=== PATIENT | male | born 1930 | race Asian ===

== ENCOUNTER → 2017-02-01 | Outpatient (CLI) | payer MEDICARE, BC ==
[~2017-02-01] MED LIST: BENZ100C4 PO; CELE200C PO; DONE5TAB7 PO; FERR325T20 PO; LEVO750T26 PO; LISI-167 PO; None per Pt.; PANT40TA5 PO; RIVA20TA PO
== END | disposition home or self-care (01) ==
LOC: CFH 14:02
PROVIDERS: ATTEND Internal Medicine Critical Care Medicine
DX: R91.1 Solitary pulmonary nodule (principal)
CPT/HCPCS: 71250

== ENCOUNTER 2018-03-19 10:00 | Emergency (ER) | payer MEDICARE, BC ==
[~2018-03-19] VITALS: Ht 172.7 cm; Wt 58.0 kg
[~2018-03-19 10:00] MED LIST changes: +BENZ-17 PO; -BENZ100C4 PO; +FERR325T18 PO; -FERR325T20 PO
[2018-03-19 11:10] LABS: BASOPHILS % (AUTO) 1 % (0-1); EOSINOPHILS # (AUTO) 0.01 x10^3/uL (0-0.4); EOSINOPHILS % (AUTO) 0 % (1-7); LYMPHOCYTES # (AUTO) 1.28 x10^3/uL (1-3.4); LYMPHOCYTES % (AUTO) 9 % (22-44); MD NO; MEAN CORPUSCULAR HGB CONC 34.5 g/dL (33.2-36.2); MEAN CORPUSCULAR VOLUME 92.8 fL (81-97); MEAN PLATELET VOLUME 7.7 fL (7.4-10.4); MONOCYTES # (AUTO) 0.98 x10^3/uL (0.2-0.8); MONOCYTES % (AUTO) 7 % (2-9); NEUTROPHILS # (AUTO) 11.28 x10^3/uL (1.8-6.8); NEUTROPHILS % (AUTO) 83 % (42-75); PLATELET COUNT 345 x10^3/uL (130-400); RED BLOOD COUNT 4.08 x10^6/uL (4.38-5.82); RED CELL DISTRIBUTION WIDTH 13.6 % (9.4-14.8)
[2018-03-19 11:20] LABS: CHLORIDE 103 mmol/L (98-107)
[2018-03-19 11:21] LABS: ALBUMIN 2.8 g/dL (3.4-5.0); ANION GAP 6 mmol/L (5-15); CALCIUM 9.3 mg/dL (8.5-10.1); CREATININE 1.06 mg/dL (0.7-1.3)
[2018-03-19] MEDS ORDERED: SODIUM CHLORIDE 0.9% 1,000 ML IV ONE (11:26)
[2018-03-19] MEDS ORDERED: SODIUM CHLORIDE 0.9% 1,000ML IVBOLUS ONE (11:30)
[2018-03-19] MEDS ORDERED: AZITHROMYCIN 500 MG in SODIUM CHLORIDE 0.9% 250 ML IV ONE (11:30)
[2018-03-19] MEDS ORDERED: CEFTRIAXONE 1,000 MG in SODIUM CHLORIDE 0.9% 50 ML IV SCH (11:30)
[2018-03-19 12:45] VITALS: BP 160/89
[2018-03-19] MEDS ORDERED: OMNIPAQUE 350 MG/ML, 75ML BOTTLE ONE (12:59)
== END 2018-03-19 14:44 | disposition home or self-care (01) ==
LOC: ED 12:00
DX: J15.9 Unspecified bacterial pneumonia (principal); R91.1 Solitary pulmonary nodule; I10 Essential (primary) hypertension; Z86.718 Personal history of other venous thrombosis and embolism
CPT/HCPCS: 36415; 70450; 71046; 71260; 80048; 82040; 82105; 82378; 83605; 84145; 85025; 86301; 87040; 93005; 96365; 96366; 96368; 99285; J0456; J0696; J7030; J7050; Q9967

== ENCOUNTER 2018-03-28 09:36 | Day surgery (SDC) | payer MEDICARE, BC ==
[~2018-03-28] VITALS: Ht 172.7 cm; Wt 55.2 kg
[2018-03-28 10:45] VITALS: BP 141/85
== END 2018-03-28 14:50 | disposition home or self-care (01) ==
LOC: RAD 09:36
PROVIDERS: ATTEND Internal Medicine Critical Care Medicine
DX: J98.4 Other disorders of lung (principal)
CPT/HCPCS: 32405; 71045; 77012; 88305